=== PATIENT | male | born 1950 | race Caucasian/White ===

== ENCOUNTER → 2020-04-05 11:06 | Outpatient (BNVA) | payer MEDICARE, OTHER, SELFPAY | PROVIDERS: Visit Provider Internal Medicine Cardiovascular Disease | DX: E78.5 Hyperlipidemia, unspecified (principal); I10 Essential (primary) hypertension; R06.02 Shortness of breath; R07.9 Chest pain, unspecified; I25.10 Atherosclerotic heart disease of native coronary artery without angina pectoris | CPT/HCPCS: 80048; 80061; 80076 ==

== ENCOUNTER → 2021-10-21 14:50 | Outpatient (BNVA) | payer MEDICARE, OTHER, SELFPAY | PROVIDERS: PCP Nurse Practitioner Family; Visit Provider Internal Medicine Cardiovascular Disease | DX: I25.10 Atherosclerotic heart disease of native coronary artery without angina pectoris (principal); I49.9 Cardiac arrhythmia, unspecified; E78.2 Mixed hyperlipidemia; I10 Essential (primary) hypertension | CPT/HCPCS: 99214 ==

== ENCOUNTER → 2022-12-18 10:53 | Outpatient (BNVA) | payer MEDICARE, SELFPAY | PROVIDERS: PCP Nurse Practitioner Family; Visit Provider Internal Medicine Cardiovascular Disease | DX: I25.10 Atherosclerotic heart disease of native coronary artery without angina pectoris (principal); I10 Essential (primary) hypertension; E78.2 Mixed hyperlipidemia; R07.89 Other chest pain; Z79.82 Long term (current) use of aspirin | CPT/HCPCS: 99214 ==

== ENCOUNTER 2023-01-02 08:05 | Observation (INO) | payer MEDICARE, SELFPAY ==
--- NOTE | 2023-01-02 06:00 | XACV_ITS ---
Exam Room: 2 Ht: 175 cm Wt: 73 kg BSA: 1.90 m2 Gender: Male : 1950 Any Known Allergies: No known allergies Exam Priority: Routine Procedure(s): Procedure Description: Diagnostic procedure Procedure Description: Left Heart Catheterization Procedure Description: Left ventriculography Procedure Description: Coronary Angiography Procedure Description: Pressure Wire Diagnostic Cath Status: Elective Diagnostic Findings * Left Main has no signifcant disease. * Circumflex has no significant disease. Mild luminal irregularities seen in the high OM/ramus. * Proximal prior stent is patent. Mid Left Anterior Descending: minimal 30% stenosis, UMBERTO: 3 flow. * Mid Right Coronary Artery: mild 40% stenosis, UMBERTO: 3 flow. * Coronary angiography shows right dominance. Interventional Findings * PROCEDURE DETAIL: We engaged the RCA with JR4 guide catheter. IV heparin was administered to maintain anticoagulation. After normalization, IFR wire was placed in distal RCA. Nonischemic IFR value of 0.98 was obtained. At this time final angiogram was performed and ifr wire and guide catheter were removed. Patient left the Nuclear Fuel Enrichment Technician in a stable condition.. Conclusions 1. Moderate mid RCA stenosis s/p iFR. Nonischemic value of 0.98 obtained. Medical therapy.. 2. Normal left ventricular systolic function. Ejection fraction of 50%. Recommendations * Aggressive medical therapy. * Outpatient cardiology follow up in 4 weeks. Interventional RX Recommendation: medical therapy and/or counseling Anticoagulation: Heparin Ventriculography Ejection Fraction: 50.0 % Pressures Phase:Rest AO : 124 / 72 ( 97 ) @ 8:24:00 AM 155 / 89 ( 117 ) @ 8:40:00 AM 158 / 86 ( 114 ) @ 8:40:00 AM LV : 168 / 0 / 19 @ 8:39:00 AM 162 / 4 / 26 @ 8:40:00 AM 171 / 3 / 27 @ 8:40:00 AM Valves Phase:DefaultPhase AV : 15.0 @ 7:46:43 AM 15.0 @ 7:46:43 AM AV Mean Gradient: 14.0 @ 7:46:43 AM 14.0 @ 7:46:43 AM Clinical Evaluation EBL: 5mL-10mL Procedural Details Procedure Consent Obtained. Admit Source: Out Patient. Pre-Procedure Time Out. Identified patient by full name and date of as verbalized by the patient/guarantor. Does the consent match the physician's order: Yes. Accurate & Complete Informed Consent: Yes. Inpatient/Outpatient History & Physical on Chart: Yes. If H&P is completed, is and addenduem needed: Yes; If yes, is the addendum complete: N/A. Visualize and Verify Site with Patient/Guarantor: N/A. Relevant Radiology Images available: Yes. The risks, benefits, and alternatives of sedation and/or procedure were discussed by physician. The patient agrees to continue. Procedure started. [facility] Clinical Fraility Score: 2: Well. Nuclear Fuel Enrichment Technician Indications: Worsening Angina. Chest Pain Symptom Assessment: Typical Angina Symptoms. Correct patient, site and procedure confirmed by cath team. Current diagnosis: Chest Pain. PERRLA. Strong, equal hand program management intern bilaterally. Lungs clear x 5 lobes. IV Site on Arrival: 20 gauge in the left anticubital. IV Fluids: 0.9% NaCl at 75ml/hr. 0 mL infused prior to prosthetics lab technician. Pre Procedural Pulses: bilateral posterior tibial was 3+. Pre Procedural Pulses: bilateral dorsalis pedis was 3+. Pre Procedural Pulses: right radial was 3+. Oxygen started at 2liters/min via nasal canula. right radial was prepped with chloroprep then draped in the usual sterile fashion. right groin was prepped with chloroprep then draped in the usual sterile fashion. Physician notified. Baseline sample Acquired. HR: 64 BPM. Physician arrived. Physician scrubbed in. Immediate Pre-Procedure Time Out. Correct Patient: Yes; Correct Procedure: Yes; Correct Site: Yes; Correct Patient Position: Yes; Correct Supplies: Yes; Dried Flammable Prep: Yes; Blood Products Available: No;. Lidocaine 1% infiltrated to the right radial. Arterial access obtained. A 5 citizen of [place] TIG catheter in over wire. Multiple views taken of left coronary artery. Catheter redirected to the RCA. Multiple views taken of right coronary artery. Catheter removed over the exchange wire. 6 citizen [place] JR 4 guide catheter was inserted over the wire. iFR pressure wire advanced through guide catheter distal to lesion in mid RCA. iFR mid RCA 0.98 mmHg. iFR wire out. Guide catheter out over exchange wire. A 5 citizen [place] Angled Pig catheter in over exchange wire. Wire out. EDP Sample taken: LV 168/-1,19; HR: 70 BPM; SpO2: 92%. LV gram performed in RAMÍREZ @ 10 mL/second for a total of 30 mL. EDP Sample taken: LV 162/4,26; HR: 71 BPM; SpO2: 96%. Pullback taken: LV 171/3,27; AO 155/89(117); Mean: 14mmHg, Peak to Peak: 15mmHg, SEP: 22sec/min; HR: 70 BPM; SpO2: 96%. Catheter removed over the exchange wire. A TR Band was successful obtaining hemostatsis at the Right Radial artery insertion site. Post Procedure: Pulses reassessed and unchanged. PERRLA. Strong, equal hand program management intern bilaterally. No VTE prophylaxis required. Medication's Wasted: Lidocaine 1% = 2 mL. Medication's Wasted: Nitro = 49.8 mg. Medication's Wasted: Heparin = 1000 units. Medication's Wasted: Other = Fentanyl 50 mcg. Total IV fluids: 40 mL. Post-op diagnosis: Non-obstructive CAD, moderate mid RCA stenosis. Complications: None. Estimated blood loss: 5mL-10mL. Responsiveness - Normal response to verbal stimuli; alert and oriented, PERRLA. Airway - Unaffected, no intervention required; spontaneous ventilation. Circulation: W/N/L, pulses unchanged. Nausea/Vomiting: No. Procedure completed. Patient transferred by wheelchair to CPRU. Access Site Site: Right Radial artery Sheath Size: 6 Fr Hemostasis Method: TR Band Hemostasis Success: Successful Procedure Medications Start: 7:15 AM Stop: 7:15 AM Medication: Versed Amount: 1 mg Route: I.V. Start: 7:15 AM Stop: 7:15 AM Medication: Fentanyl Amount: 50 mcg Route: I.V. Start: 7:21 AM Stop: 7:21 AM Medication: Versed Amount: 1 mg Route: I.V. Start: 7:22 AM Stop: 7:22 AM Medication: Nitrogylcerin Amount: 200 mcg Route: I.A. Start: 7:23 AM Stop: 7:23 AM Medication: Heparin Amount: 5000 units Route: I.V. I, the attending physician, have reviewed and verified all procedure medications. Yes, all medications given per verbal order History/Risk Factors Hypertension: Yes Dyslipidemia: Yes Peripheral Arterial Disease (PAD): No Myocardial Infarction (NH): No Obesity: No Renal Disease: No Prior Interventions PCI: Yes CABG: No Valve Surgery: No Date of PCI: 09/13/2014 Report Signatures Finalized by Rian Christy MD on 01/02/2023 08:39 AM
[2023-01-02] MEDS: aspirin 325 mg Tablet PO (06:24)
[2023-01-02] MEDS: diphenhydrAMINE 50 mg Capsule PO (06:25)
[2023-01-02 06:40] LABS: Basophils # 0.1 10^3/uL (0.0-0.1); Basophils % 0.8 %; Eosinophils # 0.6 10^3/uL (0.0-0.8); Eosinophils % 10.1 %; Hematocrit 46.2 % (42.0-52.0); Hemoglobin 14.8 g/dL (11.7-16.6); Lymphocytes # 2.1 10^3/uL (0.8-4.8); Lymphocytes % 33.9 %; Mean Corpuscular Hemoglobin 30.8 pg (28.0-34.0); Mean Platelet Volume 10.8 fL (7.4-10.4); Monocytes # 0.7 10^3/uL (0.2-0.9); Monocytes % 10.8 %; Neutrophils # 2.76 10^3/uL (1.8-7.7); Neutrophils % 44.2 %; Nucleated Red Blood Cells % 0 %; Platelet Count 146 10^3/cmm (130-400); Red Blood Count 4.81 10^6/uL (4.1-5.3); Red Cell Distribution Width 13.2 % (12.1-15.1); White Blood Count 6.2 10^3/uL (4.0-10.0)
[2023-01-02 06:45] VITALS: BP 189/99; PULSE 69; RESP 16; TEMP 36.2; O2SAT 95; BMI 23.9
[2023-01-02 06:58] LABS: Anion Gap 11.7 (5-19); Blood Urea Nitrogen 19 mg/dL (8-23); Calcium 9.1 mg/dL (8.5-10.5); Carbon Dioxide 25 mmol/L (22-29); Chloride 109 mmol/L (98-107); Glucose 96 mg/dL (65-115); Osmolality Calculated 296 mOsm/kg (285-295); Potassium 3.7 mmol/L (3.5-5.1); Sodium 142 mmol/L (136-145)
--- NOTE | 2023-01-02 07:05 | W.PM.OPSUD ---
Surgery/Procedure H&P Update DATE OF PROCEDURE: January 02, 2023 DATE H&P PERFORMED: 12/18/22 H&P UPDATE INFORMATION: I have reviewed H&P completed within last 30 days, I have examined patient prior to procedure and No changes to prior documentation PREOP DIAGNOSIS: Worsening angina PRIMARY INDICATION FOR PROCEDURE: Worsening angina PLANNED PROCEDURE: Operation Date: 01/02/23 07:00 Proposed Procedures p [facility] w/ -w/o 87321, E78.5,I10, I25.10(Left) - Rian Christy M.D Possible percutaneous coronary intervention PATIENT REASSESSED PRIOR TO SEDATION, WITH NO CHANGE NOTED: Yes PHYSICAL EXAM: alert, oriented x 3, clear to auscultation bilaterally and regular rate & rhythm AIRWAY EVAL/ANESTHESIA PLAN: normal airway, ASA III, Local Anesthesia, Risks, benefits & alternatives of sedation and/or procedure discussed and Patient agrees to continue as planned ADDITIONAL INFORMATION: Moderate sedation
--- NOTE | 2023-01-02 08:38 | PC.NURSE ---
Patient arrived from [facility]. TR band in place. No hematoma or oozing. Patient educated on activity restriction. Nurse will continue to monitor and remove TR band per protocol.
[2023-01-02 15:01] VITALS: BP 189/99; PULSE 69; RESP 16; TEMP 36.8
--- NOTE | 2023-01-02 15:04 | PC.NURSE ---
TR band removed, dressing applied, discharge instructions provided, IV removed. Patient discharged home.
== END 2023-01-02 13:00 | disposition home or self-care (01) ==
LOC: CSU 08:12
PROVIDERS: Admitting Provider Internal Medicine; PCP Nurse Practitioner Family; Visit Provider Internal Medicine
DX: I25.10 Atherosclerotic heart disease of native coronary artery without angina pectoris (principal); E78.5 Hyperlipidemia, unspecified; I10 Essential (primary) hypertension; Z95.5 Presence of coronary angioplasty implant and graft; Z79.82 Long term (current) use of aspirin; Z79.01 Long term (current) use of anticoagulants
CPT/HCPCS: 36415; 80048; 85025; 93458; 93571; 96365; 99152; 99153; C1769; C1887; C1894; G0378; J1644; J2250; J3010; J3490; J7030; Q0163; Q9967

== ENCOUNTER → 2023-01-13 08:58 | Outpatient (BNVA) | payer MEDICARE, SELFPAY | PROVIDERS: PCP Nurse Practitioner Family; Visit Provider Nurse Practitioner Family | DX: I25.10 Atherosclerotic heart disease of native coronary artery without angina pectoris (principal); I10 Essential (primary) hypertension | CPT/HCPCS: 99213 ==

== ENCOUNTER 2024-05-25 21:37 | Emergency (ER) | payer MEDICARE, SELFPAY ==
--- NOTE | 2024-05-25 21:38 | ECG_ITS ---
[employer] Smart [employer]oon Test Date: 2024-05-25 Pat Name: Theron Beasley Department: Room: Gender: Male Registered Nurse Cardiac Telemetry: : 1950 Requested By: Constanza Perkins Order Number: [id number] Linn MD: Lyndsey Rivers M.D. Measurements Intervals [place] Rate: 69 P: 56 MS: 165 QRS: -23 QRSD: 110 T: 65 QT: 361 QTc: 387 Interpretive Statements SINUS RHYTHM SEPTAL MYOCARDIAL INFARCTION , PROBABLY OLD [40+ ms Q WAVE IN V1/V2] Compared to ECG 10/31/2018 08:49:07 Myocardial infarct finding now present Electronically Signed On 05-26-2024 00:57:46 CDT by Lyndsey Rivers M.D. [id number]
[2024-05-25 21:46] VITALS: BP 154/85; PULSE 71; RESP 16; TEMP 36.9; O2SAT 97; BMI 23.6
--- NOTE | 2024-05-25 21:55 | XRR_ITS ---
PROCEDURE INFORMATION: Exam: XR Chest Exam date and time: 05/25/2024 10:29 PM Age: 73 years old Clinical indication: Pain; Chest pressure; Additional info: Chest pain TECHNIQUE: Imaging protocol: Radiologic exam of the chest. Views: 1 view. COMPARISON: CT abdomen pelvis w con* [id number] 10/31/2018 9:05 AM FINDINGS: Lungs: Lungs are hyperinflated. Clear parenchyma. Pleural spaces: No pleural effusion. No pneumothorax. Heart/Mediastinum: Cardiac silhouette is normal in size for technique. Bones/joints: Age appropriate. XR/XR chest 1V portable [id number] IMPRESSION: Hyperinflated but clear lungs. No other acute cardiopulmonary abnormality.
[2024-05-25 23:29] LABS: Basophils % 0.6 %; Eosinophils # 0.2 10^3/uL (0.0-0.8); Eosinophils % 3.4 %; Hematocrit 47.4 % (37-53); Lymphocytes # 0.8 10^3/uL (0.8-4.8); Lymphocytes % 15.5 %; Mean Corpuscular HGB Conc 32.5 g/dL (30-55); Mean Corpuscular Hemoglobin 31.6 pg (27-33); Mean Corpuscular Volume 97.1 fl (82-101); Mean Platelet Volume 10.4 fL (7.4-10.4); Monocytes # 0.6 10^3/uL (0.2-0.9); Monocytes % 10.7 %; Neutrophils # 3.73 10^3/uL (1.8-7.7); Neutrophils % 69.6 %; Nucleated Red Blood Cells % 0 %; Platelet Count 146 10^3/cmm (157-399); Red Blood Count 4.88 10^6/uL (3.85-5.65); Red Cell Distribution Width 13.2 % (12.1-15.1); White Blood Count 5.35 10^3/uL (3.29-11.43)
[2024-05-25 23:33] LABS: Troponin(5th) Baseline 10 ng/L (0-15)
[2024-05-25 23:35] LABS: Alanine Aminotransferase 14 U/L (0-41); Albumin Level 4.3 g/dL (3.5-5.2); Alkaline Phosphatase 62 U/L (40-130); Anion Gap 13.6 (5-19); Aspartate Amino Transferase 19 U/L (0-40); Blood Urea Nitrogen 21 mg/dL (8-23); Calcium 8.9 mg/dL (8.5-10.5); Carbon Dioxide 26 mmol/L (22-29); Chloride 106 mmol/L (98-107); Creatinine Clr Calc Pharmacy 50.3814; Globulin 2.2 g/dL (1.3-4.6); Glucose 78 mg/dL (65-115); Osmolality Calculated 294 mOsm/kg (285-295); Potassium 4.6 mmol/L (3.5-5.1); Sodium 141 mmol/L (136-145); Total Bilirubin 0.4 mg/dL (0.15-1.2); Total Protein 6.5 g/dL (6.6-8.7)
[2024-05-25 23:42] VITALS: BP 171/92; PULSE 66; O2SAT 95
--- NOTE | 2024-05-25 23:55 | ECG_ITS ---
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
[2024-05-25 23:59] LABS: NT Pro B Type Natriuretic Pept 456 pg/mL (0-125)
[2024-05-26] VITALS: BP 165/95
--- NOTE | 2024-05-26 00:12 | ED_ITS ---
HPI - Chest Pain 2 General: Chief Complaint: Chest Pain Stated Complaint: Chest Pressure Time Seen by Provider: 05/25/24 23:10 History of Present Illness: 73-year-old man with a history of hypert ension and hyperlipidemia who presents to the emergency room with chest pressure. He says he bikes at least once a day but did not today because of the weather. He says he had the pressure all day today. Feels mildly short of breath. No diaphoresis. No nausea or vomiting. No abdominal pain. Related Data Home Medications Medication Instructions Recorded Confirmed aspirin 325 mg tablet 325 mg PO .four to 5 times week 04/05/20 01/13/23 clopidogrel 75 mg tablet 75 mg PO DAILY 04/05/20 01/13/23 lisinopril 5 mg tablet 5 mg PO .prn 04/05/20 01/13/23 metoprolol succinate 25 mg 25 mg PO .prn 04/05/20 01/13/23 tablet,extended release 24 hr nitroglycerin 0.4 mg sublingual 0.4 mg sublingual Q5M PRN Chest 04/05/20 01/13/23 tablet (Nitrostat) Pain rosuvastatin 10 mg tablet (Crestor) 20 mg PO DAILY 04/06/20 01/13/23 Allergies Allergy/AdvReac Type Severity Reaction Status Date / Time No Known Allergies Allergy Verified 01/13/23 09:05 Review of Systems 2 Narrative: Constitutional symptoms: Negative except as documented in HPI. Skin symptoms: Negative except as documented in HPI. Eye symptoms: Negative except as documented in HPI. ENMT symptoms: Negative except as documented in HPI. Respiratory symptoms: Negative except as documented in HPI. Cardiovascular symptoms: Negative except as documented in HPI. Gastrointestinal symptoms: Negative except as documented in HPI. Genitourinary symptoms: Negative except as documented in HPI. Musculoskeletal symptoms: Negative except as documented in HPI. Neurologic symptoms: Negative except as documented in HPI. Psychiatric symptoms: Negative except as documented in HPI. Endocrine symptoms: Negative except as documented in HPI. PFSH ED 2 PFSH: Medical History ASHD (arteriosclerotic heart disease) the EKG from today, 04/05/2020 revealed normal sinus rhythm with 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 Left axis deviation. No acute ST-T changes. Chest pressure Hyperlipidemia Hypertension Noncompliance Ventricular arrhythmia Surgical History History of tonsillectomy Family History Other CAD (coronary artery disease) Family history of premature coronary artery disease Social History Smoking and tobacco/nicotine status: never used tobacco/nicotine Alcohol intake: current Alcohol intake frequency: holidays/special occasions only Substance/Drug Use: never Physical Exam 2 Narrative: EXAM NARRATIVE: General: Alert, no acute distress. Skin: Warm, dry. Head: Normocephalic, atraumatic. Neck: Supple, trachea midline. Eye: Extraocular movements are intact. Ears, nose, mouth and throat: mucosa moist. Cardiovascular: Regular, Normal peripheral perfusion. Respiratory: Lungs are clear to auscultation, respirations are non-labored, breath sounds are equal, Symmetrical chest wall expansion. Gastrointestinal: Soft, Nontender, Non distended Musculoskeletal: Normal ROM, no deformity. Neurological: Alert and oriented, No focal neurological deficit observed. Psychiatric: Cooperative, appropriate mood & affect. Course 2 Vital Signs: Vital signs: Vital Signs Temperature 98.5 F 05/25/24 21:46 Pulse Rate 66 05/25/24 23:42 Respiratory Rate 16 05/25/24 21:46 Blood Pressure 170/97 05/26/24 01:00 Pulse Oximetry 95 05/25/24 23:42 Oxygen Delivery Me thod Room Air 05/25/24 23:42 MDM - Chest Pain Medical Decision Making Differential diagnosis for patient with chest pain includes but is not limited to and based on the above HPI, review of systems and physical exam: Pneumonia. unstable angina. angina. Acute coronary syndrome / HI. Pulmonary embolism. Costochondritis / musculoskeletal. Pleurisy. Pericarditis. Esophageal spasm. Pancreatis. Cholecystitis. Orders placed to evaluate differential diagnosis based on the above differential, HPI and physical exam EKG: Time 2138. Rate 69. Normal sinus rhythm, No ST-T changes, no ectopy, normal CT & QRS intervals, This was reviewed and interpreted by myself the ER physician at 2142. Repeat EKG: Time 0005. Rate 61. Normal sinus rhythm, No ST-T changes, no ectopy, normal CT & QRS intervals, This was reviewed and interpreted by myself the ER physician at 0009. No change from EKG done previously in the emergency room. Chest x-ray: No acute process. No infiltrate. No pneumothorax. This was reviewed and interpreted by myself the ER physician. Lab Review: Laboratory results were reviewed and interpreted by myself the emergency room physician. No leukocytosis. No anemia. BUN/creatinine are are mildly elevated over his baseline of 1.1 at 21 and 1.3 Serial cardiac markers are negative for I reviewed the patient's medical record. Reexamination: Patient remained stable. No increased work of breathing. No altered mental status. No focal motor deficits. Assessment and plan: Noncardiac chest pain - Discharged home - Discussed plan with patient. Answered any questions. - Evaluation and treatment of this problem were appropriate in the emergency setting. Lab Data 05/25/24 22:40 05/25/24 22:40 Radiology Impressions Chest X-Ray 05/25/24 21:55 IMPRESSION: Hyperinflated but clear lungs. No other acute cardiopulmonary abnormality. Laboratory Results WBC 5.35 10^3/uL (3.29-11.43) 05/25/24 22:40 RBC 4.88 10^6/uL (3.85-5.65) 05/25/24 22:40 Hgb 15.40 g/dL (11.27-16.99) 05/25/24 22:40 Hct 47.4 % (37-53) 05/25/24 22:40 MCV 97.1 fl (82-101) 05/25/24 22:40 MCH 31.6 pg (27-33) 05/25/24 22:40 MCHC 32.5 g/dL (30-55) 05/25/24 22:40 RDW 13.2 % (12.1-15.1) 05/25/24 22:40 Plt Count 146 10^3/cmm (157-399) L 05/25/24 22:40 MPV 10.4 fL (7.4-10.4) 05/25/24 22:40 Neut % (Auto) 69.6 % 05/25/24 22:40 Lymph % (Auto) 15.5 % 05/25/24 22:40 Story % (Auto) 10.7 % 05/25/24 22:40 Eos % (Auto) 3.4 % 05/25/24 22:40 Baso % (Auto) 0.6 % 05/25/24 22:40 Neut # (Auto) 3.73 10^3/uL (1.8-7.7) 05/25/24 22:40 Lymph # (Auto) 0.8 10^3/uL (0.8-4.8) 05/25/24 22:40 Story # (Auto) 0.6 10^3/uL (0.2-0.9) 05/25/24 22:40 Eos # (Auto) 0.2 10^3/uL (0.0-0.8) 05/25/24 22:40 Baso # (Auto) 0.0 10^3/uL (0.0-0.1) 05/25/24 22:40 Nucleated RBC % (auto) 0 % 05/25/24 22:40 Nucleated RBCs # 0.0 /100WBC 05/25/24 22:40 Sodium 141 mmol/L (136-145) 05/25/24 22:40 Potassium 4.6 mmol/L (3.5-5.1) 05/25/24 22:40 Chloride 106 mmol/L (98-107) 05/25/24 22:40 Carbon Dioxide 26 mmol/L (22-29) 05/25/24 22:40 Anion Gap 13.6 (5-19) 05/25/24 22:40 BUN 21 mg/dL (8-23) 05/25/24 22:40 Creatinine 1.3 mg/dL (0.7-1.2) H 05/25/24 22:40 GFR Calculation Not Reportable 05/25/24 22:40 Glucose 78 mg/dL (65-115) 05/25/24 22:40 Calculated Osmolality 294 mOsm/kg (285-295) 05/25/24 22:40 Calcium 8.9 mg/dL (8.5-10.5) 05/25/24 22:40 Total Bilirubin 0.4 mg/dL (0.15-1.2) 05/25/24 22:40 AST 19 U/L (0-40) 05/25/24 22:40 ALT 14 U/L (0-41) 05/25/24 22:40 Alkaline Phosphatase 62 U/L (40-130) 05/25/24 22:40 Troponin T Baseline 10 ng/L (0-15) 05/25/24 22:40 Troponin T 120 Minute 9.60 ng/L (0-15) 05/26/24 00:40 Delta Troponin T -0.40 ABS# (0-10) L 05/26/24 00:40 NT-Pro-B Natriuret Pep 456 pg/mL (0-125) H 05/25/24 22:40 Total Protein 6.5 g/dL (6.6-8.7) L 05/25/24 22:40 Albumin 4.3 g/dL (3.5-5.2) 05/25/24 22:40 Globulin 2.2 g/dL (1.3-4.6) 05/25/24 22:40 Coronavirus (PCR) Negative (Negative) 05/25/24 23:39 Influenza A (PCR) Negative (Negative) 05/25/24 23:39 Influenza Type B (PCR) Negative (Negative) 05/25/24 23:39 RSV (PCR) Negative (Negative) 05/25/24 23:39 All radiology interpretation(s) finalized by discharge Discharge Plan Discharge Patient Disposition: Home Clinical Impression: Non-cardiac chest pain Condition: Stable Prescriptions: No Action lisinopril 5 mg tablet 5 mg PO .prn Patient Comments: when I think I need it aspirin 325 mg tablet 325 mg PO .four to 5 times week clopidogrel 75 mg tablet 75 mg PO DAILY nitroglycerin [Nitrostat] 0.4 mg tablet, sublingual 0.4 mg SUBLINGUAL Q5M PRN (Reason: Chest Pain) Rx Instructions: do not exceed 3 doses per episode metoprolol succinate 25 mg tablet extended release 24 hr 25 mg PO .prn Patient Comments: when he feels like it rosuvastatin [Crestor] 10 mg tablet 20 mg PO DAILY Discharge Orders: Discharge ED (Routine); Ordered 05/26/24 Ordered By: Constanza Mark Discharge Diet: Usual diet Discharge Activity: Resume usual activity Patient Instructions: Noncardiac Chest Pain (ED) Activity Restrictions/Additional Instructions: Thank you for choosing [facility] for your healthcare needs today. Please realize this is an emergency room and that we are providing you with a medical screening exam and this may not be complete and all inclusive of all the testing and or work up that you may need to determine your ailment or severity of your illness. You have been screened and evaluated and felt safe for discharge. Health conditions do change or evolve sometimes and as such it is important that you follow up with your Primary Doctor to be re checked, 3-5 days is a general good time frame for follow up. You are always welcome to return to the ED for re assessment if your symptoms are worsening or you have new concerns Coding Level of Care Code ED Environmental Law Professor for Mikaela Wright
[2024-05-26 00:21] LABS: Covid PCR NEGATIVE (Negative); Influenza A NEGATIVE (Negative); Influenza B NEGATIVE (Negative); Respiratory Syncytial Virus Ce NEGATIVE (Negative)
[2024-05-26 00:30] VITALS: BP 168/99
[2024-05-26 01:00] VITALS: BP 170/97
== END 2024-05-26 01:20 | disposition home or self-care (01) ==
PROVIDERS: Emergency Provider Emergency Medicine
DX: R07.89 Other chest pain (principal); Z79.02 Long term (current) use of antithrombotics/antiplatelets; Z79.82 Long term (current) use of aspirin; Z11.52 Encounter for screening for COVID-19; E78.5 Hyperlipidemia, unspecified; I10 Essential (primary) hypertension
CPT/HCPCS: 0241U; 36415; 71045; 80053; 83880; 84484; 85025; 93005; 99285

== ENCOUNTER → 2024-05-31 11:09 | Outpatient (BNVA) | payer MEDICARE, SELFPAY | PROVIDERS: Visit Provider Internal Medicine Cardiovascular Disease | DX: R07.9 Chest pain, unspecified (principal) | CPT/HCPCS: 93005; 99214 ==

== ENCOUNTER → 2024-06-22 10:15 | Outpatient (BNVA) | payer MEDICARE, SELFPAY | PROVIDERS: Visit Provider Nurse Practitioner Family | DX: D48.5 Neoplasm of uncertain behavior of skin (principal); L57.0 Actinic keratosis; L57.8 Other skin changes due to chronic exposure to nonionizing radiation; L82.1 Other seborrheic keratosis; L81.4 Other melanin hyperpigmentation; Z85.828 Personal history of other malignant neoplasm of skin | CPT/HCPCS: 11102; 17000; 99213 ==

== ENCOUNTER → 2024-11-23 14:46 | Outpatient (BNVA) | payer MEDICARE, SELFPAY | PROVIDERS: PCP Family Medicine; Visit Provider Internal Medicine Cardiovascular Disease | DX: I10 Essential (primary) hypertension (principal); I25.10 Atherosclerotic heart disease of native coronary artery without angina pectoris; I49.8 Other specified cardiac arrhythmias; E78.2 Mixed hyperlipidemia; Z95.5 Presence of coronary angioplasty implant and graft; R07.9 Chest pain, unspecified; E78.5 Hyperlipidemia, unspecified | CPT/HCPCS: 99214 ==

== ENCOUNTER 2024-11-25 07:32 | Outpatient (CLI) | payer MEDICARE, SELFPAY ==
[2024-11-25 08:14] LABS: Chol HDL Ratio 2.69 mg/dL (1.0-5.00); Cholesterol 137 mg/dL (0-200); HDL Cholesterol 51 mg/dL (60-100); LDL Cholesterol Calculated 72 mg/dL (50-129); LDL HDL Ratio 1.41 RATIO (0.00-3.22); Triglycerides 70 mg/dL (0-150)
== END 2024-11-25 07:33 | disposition home or self-care (01) ==
PROVIDERS: PCP Family Medicine; Visit Provider Internal Medicine Cardiovascular Disease
DX: E78.5 Hyperlipidemia, unspecified (principal)
CPT/HCPCS: 36415; 80061

== ENCOUNTER → 2024-12-20 10:53 | Outpatient (BNVA) | payer MEDICARE, SELFPAY | PROVIDERS: PCP Family Medicine; Visit Provider Nurse Practitioner Family | DX: L57.8 Other skin changes due to chronic exposure to nonionizing radiation (principal); L66.12 Frontal fibrosing alopecia; D69.2 Other nonthrombocytopenic purpura; L81.4 Other melanin hyperpigmentation; Z08 Encounter for follow-up examination after completed treatment for malignant neoplasm; Z85.828 Personal history of other malignant neoplasm of skin; L57.0 Actinic keratosis | CPT/HCPCS: 17000; 99214 ==

== ENCOUNTER 2025-07-15 13:43 | Emergency (ER) | payer OTHER, SELFPAY ==
--- OUTSIDE RECORDS SUMMARY | 2025-07-15 13:50 | XMS_ITS | Clinical Summary ---
Author Organization [facility] Address [address]ne: [place] [address] Care Team Providers Care Call Circuit Worker Name Role Phone Unavailable Primary Care Provider Unavailabl e Allergies No known active allergies Medications metroNIDAZOLE (FLAGYL) 500 mg/100 mL Piggyback Inject 500 mg by intraveous injection every 8 hours. 0 Active rosuvastatin (CRESTOR) 10 mg tablet Take 10 mg by mouth daily at bedtime. 0 Active clopidogreL (PLAVIX) 75 mg Tablet Take 75 mg by mouth. 0 Active lisinopriL (PRINIVIL) 10 mg tablet Take 10 mg by mouth daily. Active Active Problems No known active problems Encounters Date Type Department Care Team Description 05/30/2025 External Device Data [facility] ABSTRACTION Provider, Abstract 05/16/2025 External Device Data [facility] ABSTRACTION Provider, Abstract 05/16/2025 External Device Data [facility] ABSTRACTION Provider, Abstract 05/16/2025 External Device Data [facility] ABSTRACTION Provider, Abstract 05/10/2025 Orders Only [facility] [address] [place] [phone] Caitlin Avery MD 05/09/2025 9:10 AM CDT Office Visit [facility] [address] [place] [phone] Caitlin Avery MD Chronic pain of right knee (Primary Dx); Pain of right hip; Arthritis of right knee 05/09/2025 8:50 AM CDT Ancillary Procedure [facility] [address] [place] [phone] Caitlin Avery MD Chronic pain of right knee; Pain of right hip 05/01/2025 Abstract [facility] [address] [place] [phone] Caitlin Avery MD 04/27/2025 Abstract [facility] [address] [place] [phone] Caitlin Avery MD from Last 3 Months Family History Medical History Relation Name Comments Heart Disease Father Heart Disease Mother Relation Name Status Comments Father Mother Social History Tobacco Use Types Packs/Day Years Used Date Smoking Tobacco: Never Smokeless Tobacco: Never Sex and Gender Information Value Date Recorded Sex Assigned at Not on file Legal Sex Male 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 Gender Identity Not on file Sexual Orientation Not on file Last Filed Vital Signs Vital Sign Reading Time Taken Comments Blood Pressure 138/85 05/09/2025 9:08 AM CDT Pulse 60 09/08/2019 9:37 AM COMPLIANCE INVESTIGATOR Temperature - - Respiratory Rate - - Oxygen Saturation - - Inhaled Oxygen Concentration - - Weight 72.6 kg (160 lb) 05/09/2025 9:08 AM CDT Height 174 cm (5' 8.5 ) 05/09/2025 9:08 AM CDT Body Mass Index 23.97 05/09/2025 9:08 AM CDT Plan of Treatment Health Maintenance Due Date Last Done Comments COLORECTAL SCREENING 1994 Colorectal Cancer Screening 1994 FIT-DNA Q 3 years 1994 FIT/FOBT Q 1 year 1994 Flex Sig/CT Colonography Q 5 years 1994 ZOSTER VACCINE (1 of 2) 10/27/1999 RSV VACCINE (60+ or ) (1 - 1-dose 75+ series) 2024 INFLUENZA VACCINE (#1) 2025 DTAP/TDAP/TD VACCINES (2 - Td or Tdap) 05/31/2025 PNEUMOCOCCAL VACCINE 50+ YEARS Completed 04/28/2024 Procedures Procedure Name Priority Date/Time Associated Diagnosis Comments XR KNEE 4+ VW RIGHT Routine 05/09/2025 9 :02 AM CDT Chronic pain of right knee Pain of right hip from Last 3 Months Results * XR KNEE 4+ VW RIGHT (05/09/2025 9:02 AM CDT) Anatomical Region Laterality Modality Lower Extremity Computed Radiogr aphy Narrative 05/10/2025 9:29 AM CDT 4 views of the affected right knee(s) were obtained at our institution. I have personally read the xrays and they show: -Tricompartmental compartment narrowing -Joint space narrowing is Severe -Osteophytes present -Subchondral sclerosis -Cystic formation us Caitlin Avery MD DIAGNOSTIC IMAGING ORDERABL ES Final Result from Last 3 Months Insurance [facility]
--- OUTSIDE RECORDS SUMMARY | 2025-07-15 13:50 | XMS_ITS | Clinical Summary ---
Author Organization [facility] Address [address] [place] [address] Care Team Providers Care Chaser Apprentice Name Role Phone Unavailable Primary Care Provider Unavailabl e Medications rosuvastatin (CRESTOR) 10 mg tablet Take 10 mg by mouth daily at bedtime. Active clopidogreL (PLAVIX) 75 mg Tablet Take 75 mg by mouth. Active metroNIDAZOLE (Metro I.V.) 500 mg/100 mL Piggyback Inject 500 mg by intraveous injection every 8 hours. 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 Gender Identity Not on file Sexual Orientation Not on file Last Filed Vital Signs Vital Sign Reading Time Taken Comments Blood Pressure 157/87 09/08/2019 9:37 AM WEAVER APPRENTICE Pulse 60 09/08/2019 9:37 AM WEAVER APPRENTICE Temperature - - Respiratory Rate - - Oxygen Saturation - - Inhaled Oxygen Concentration - - Weight 77.6 kg (171 lb) 09/08/2019 9:37 AM WEAVER APPRENTICE Height 174 cm (5' 8.5 ) 09/08/2019 9:37 AM WEAVER APPRENTICE Body Mass Index 25.62 09/08/2019 9:37 AM WEAVER APPRENTICE Plan of Treatment Health Maintenance Due Date Last Done Comments DTAP/TDAP/TD VACCINES (1 - Tdap) 1968 COLORECTAL SCREENING 1994 Colorectal Cancer Screening 1994 FIT-DNA Q 3 years 1994 FIT/FOBT Q 1 year 1994 Flex Sig/CT Colonography Q 5 years 1994 PNEUMOCOCCAL VACCINE 50+ YEARS (1 of 1 - PCV) 10/27/19 00 ZOSTER VACCINE (1 of 2) 10/27/1999 RSV VACCINE (60+ or ) (1 - 1-dose 75+ series) 2024 INFLUENZA VACCINE (#1) 2025 Insurance MEDICARE PART A AND B [employer]
[2025-07-15 13:51] VITALS: BP 157/81; PULSE 69; RESP 18; TEMP 36.8; O2SAT 96; BMI 23.6
--- NOTE | 2025-07-15 15:05 | USR_ITS ---
PROCEDURE INFORMATION: Exam: US Duplex Right Lower Extremity Veins, Limited Exam date and time: 07/15/2025 3:37 PM Age: 74 years old Clinical indication: Pain; Leg, lower; Right; Prior surgery; Surgery date: 3-7 days post-operative; Surgery type: Knee replacement; Additional info: S/P right tka 06/10, edema, not on ac TECHNIQUE: Imaging protocol: Real-time duplex ultrasound of the right extremity with 2-D murphy scale, color Doppler flow and spectral waveform analysis including responses to compression and other maneuvers (when performed) with image documentation. Limited exam was focused on the right lower extremity veins. COMPARISON: No relevant prior studies available. FINDINGS: Right deep veins: Unremarkable. The common femoral, femoral, proximal profunda femoral and popliteal veins are patent without thrombus. Normal Doppler waveforms. Normal compressibility and/or augmentation response. Superficial veins: Greater saphenous vein at the saphenofemoral junction is patent without thrombus. Soft tissues: Unremarkable. US/[place] [address] IMPRESSION: No evidence of deep vein thrombosis.
--- NOTE | 2025-07-15 15:12 | W.ED.EXTPRO ---
HPI - Extremity Problem General: Chief complaint: Extremity Injury, Lower Stated complaint: R knee swollen R foot turning blue Time Seen by Provider: 07/15/25 14:07 History of Present Illness: Patient is a 74-year-old male with right total knee arthroplasty on 07/10, not on AC, presents to the emergency room due to pulling ecchymosis on right foot. He does have association of edema. He has not been on anticoagulation for over 2 days. The pooling of blood in his foot is new today. He is requesting that we drain his thigh of the extra edema. Associated symptoms: Deny chest pain or fever(s) Related Data Home Medications ?Medication ?Instructions ?Recorded ?Confirmed clopidogrel 75 mg tablet 75 mg PO DAILY 04/05/20 07/15/25 acetaminophen 500 mg tablet 500 mg PO Q6H PRN Pain 07/15/25 07/15/25 apixaban 2.5 mg tablet (Eliquis) 2.5 mg PO BID 07/15/25 07/15/25 ibuprofen 200 mg tablet (Advil) 400 mg PO Q6H PRN Pain 07/15/25 07/15/25 ketorolac 10 mg tablet 10 mg PO Q6H 07/15/25 07/15/25 lisinopril 40 mg tablet 20 mg PO DAILY 07/15/25 07/15/25 metoprolol succinate 50 mg 25 mg PO DAILY 07/15/25 07/15/25 tablet,extended release 24 hr rosuvastatin 20 mg tablet 10 mg PO QPM 07/15/25 07/15/25 Allergies Allergy/AdvReac Type Severity Reaction Status Date / Time No Known Allergies Allergy Verified 07/15/25 14:00 Review of Systems General: Reports: 10 or more systems reviewed and unremarkable except in HPI and below Const: Denies: fever(s) or chills Eyes: Denies: change in vision or blurry vision Card: Denies: chest pain, palpitations, irregular heart rhythm, swelling of feet/ankles, lightheadedness, syncope, pre-syncope or dyspnea on exertion Resp: Denies: dyspnea, productive cough or non-productive cough GI: Denies: abdominal pain, nausea, vomiting or hematochezia : Denies: flank pain or difficulty urinating Musc: Reports: extremity pain, extremity swelling, joint pain, joint swelling, joint stiffness and limited range of motion; Denies: back pain Skin/Breast: Reports: skin swelling and sores Neuro: Denies: headache(s) or numbness in extremities Psych: Denies: anxiety or depression Villa/Lymph: Denies: easy bleeding PFSH ED PFSH: Medical History (Updated 07/15/25 @ 15:44 by GERMAINE Oliveira) Chest pressure Hyperlipidemia Hypertension ASHD (arteriosclerotic heart disease) the EKG from today, 04/05/2020 revealed normal sinus rhythm with 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 Left axis deviation. No acute ST-T changes. Ventricular arrhythmia Noncompliance Surgical History History of tonsillectomy Family History Other CAD (coronary artery disease) Family history of premature coronary artery disease Social History Smoking and tobacco/nicotine status: never used tobacco/nicotine Alcohol intake: current Alcohol intake frequency: holidays/special occasions only Substance/Drug Use: never Physical Exam Const: COMMON NORMALS: patient oriented x3 HENMT: COMMON NORMALS: normocephalic and atraumatic HEAD & SCALP: normocephalic and atraumatic Lymph: LYMPHATIC: no lymphadenopathy noted Chest: COMMONS NORMALS: normal inspection of the chest and normal palpation of entire chest wall Resp: COMMON NORMALS: normal respiratory effort, No retractions, No use of accessory muscles, clear to auscultation bilaterally and percussion normal AUSCULTATION: clear to auscultation bilaterally PERCUSSION: percussion normal Cardio: COMMON NORMALS: regular rate and regular rhythm RATE: regular rate RHYTHM: regular rhythm GI: COMMON NORMALS: Normal to inspection, nondistended, normoactive bowel sounds present, Soft to palpation, non-tender and No hepatosplenomegaly present PALPATION: Yes Soft to palpation and Yes No hepatosplenomegaly present : COMMON NORMALS: Yes no CVA tenderness BLADDER/KIDNEY EXAM: Yes no CVA tenderness Back/Pelvis: COMMON NORMALS: no CVA tenderness Extremity: NARRATIVE EXTREMITY EXAM: Right lower extremity with edema on the thigh, swelling locally on the right knee, without drainage from the sutures, lower extremity +2, medial malleolus to medial posterior foot with ecchymosis, dark blue, pooling pattern Neuro: COMMON NORMALS: patient oriented x3 and CN's II-XII intact bilaterally Psych: COMMON NORMALS: mental status grossly normal, Normal thought process present and cooperative THOUGHT PROCESS: Normal thought process present Skin: COMMON NORMALS: no rashes or lesions noted NARRATIVE SKIN EXAM: Ecchymosis right medial foot medial malleolus is, bluish Midline incision right knee, association of swelling locally, and thigh. Lower extremity +2. GENERAL SKIN EXAM: no rashes or lesions noted Course Vital Signs: Vital signs: Vital Signs Temperature 98.3 F 07/15/25 13:51 Pulse Rate 69 07/15/25 13:51 Respiratory Rate 18 07/15/25 13:51 Blood Pressure 157/81 07/15/25 13:51 Pulse Oximetry 96 07/15/25 13:51 Oxygen Delivery Me thod Room Air 07/15/25 13:51 MDM - Extremity (Nontraumatic) Medical Decision Making Patient is a 74-year-old male with right total knee replacement nearly 1 week ago, presents with right lower extremity edema, and ecchymosis to his right foot. New this morning was in his right foot ecchymosis. He stopped his Eliquis on his own 2 days ago. He states that he is already on clopidogrel, and wanted to start this. Patient's ultrasound of his right lower extremity is negative for DVT. I have advised him to go back on his prophylactic Eliquis. He is to discuss further changes with his primary surgeon. He has requested draining the thigh, which is not applicable to the emergency room situation. There is no extra pain, or concern for compartmental syndrome or escalation of care. Patient is well-appearing nontoxic 6 days postop gentleman. All his questions answered satisfaction. Medical Records I reviewed the patient's medical records. Lab Data I reviewed the patient's lab results. Radiology Impressions Venous Duplex 07/15/25 15:05 IMPRESSION: No evidence of deep vein thrombosis. All radiology interpretation(s) finalized by discharge ED provider radiology interpretation(s): No DVT Discharge Plan Discharge Patient Disposition: Home Clinical Impression: Edema of right lower extremity Condition: Stable Prescriptions: No Action clopidogrel 75 mg tablet 75 mg PO DAILY metoprolol succinate 50 mg Tablet Extended Release 24 Hr 25 mg PO DAILY acetaminophen 500 mg tablet 500 mg PO Q6H PRN (Reason: Pain) ketorolac 10 mg tablet 10 mg PO Q6H ibuprofen [Advil] 200 mg Tablet 400 mg PO Q6H PRN (Reason: Pain) rosuvastatin 20 mg Tablet 10 mg PO QPM Eliquis 2.5 mg tablet 2.5 mg PO BID lisinopril 40 mg tablet 20 mg PO DAILY Discharge Orders: Discharge ED (Routine); Ordered 07/15/25 Ordered By: Prema Vang Referrals: Jane Hernandez MD [Primary Care Provider, Family Practice] Discharge Diet: Low Salt Discharge Activity: Resume usual activity Patient Instructions: Leg Edema (ED), Patient Portal & [facility] Instructions Activity Restrictions/Additional Instructions: - Wear compression sock on your right side - Call your doctor on Thursday for follow-up -Return with worsening edema, pain. -Start back on your Eliquis Thank you for choosing [facility] for your healthcare needs today. You have been screened and evaluated and felt safe for discharge. Health conditions do change or evolve sometimes and as such it is important that you follow up with your Primary Doctor to be re checked, 3-5 days is a general good time frame for follow up. You are always welcome to return to the ED for re assessment if your symptoms are worsening or you have new concerns Print Language: Hungarian Coding Level of Care Code ED Batch Roller Operator for Mikaela Wright
== END 2025-07-15 16:05 | disposition home or self-care (01) ==
PROVIDERS: Emergency Provider Physician Assistant; PCP Family Medicine
DX: R60.0 Localized edema (principal); Z79.01 Long term (current) use of anticoagulants; Z79.02 Long term (current) use of antithrombotics/antiplatelets; E78.5 Hyperlipidemia, unspecified; I10 Essential (primary) hypertension
CPT/HCPCS: 93971; 99284